=== PATIENT | female | born 1990 | race Two or more races ===

== ENCOUNTER 2024-09-16 23:21 | Emergency (ER) | payer OTHER ==
[~2024-09-16] VITALS: Ht 160 cm; Wt 63.5 kg
[2024-09-17] MEDS ORDERED: METHYLPREDNISOLONE SOD SUCC 125 MG VIAL IV STA (00:55)
[2024-09-17] MEDS ORDERED: DIPHENHYDRAMINE HCL 50 MG/ML VIAL 1ML IV STA (00:55)
[2024-09-17] MEDS ORDERED: FAMOTIDINE/PF 20 MG/2 ML VIAL IV PUSH STA (00:55)
[2024-09-17] MEDS ORDERED: EPINEPHRINE HCL/PF 1 MG/ML AMPUL SUBCUTANEO STA (00:56)
== END 2024-09-17 04:14 | disposition home or self-care (01) ==
LOC: ER 23:51
DX: L50.8 Other urticaria (principal); Z88.0 Allergy status to penicillin
CPT/HCPCS: 96365; 99282; J1200; J3490